=== PATIENT | female | born 1965 | race Caucasian/White ===

== ENCOUNTER 2019-03-22 06:47 | Day surgery (SDC) | payer MEDICAID ==
[2019-03-22] MEDS ORDERED: Propofol 200 MG/20 ML SDV ONE ×2 (07:25→08:47)
[2019-03-22] MEDS ORDERED: Midazolam 1 MG/ML 2 ML SDV ONE (07:25)
[2019-03-22] MEDS ORDERED: fentaNYL 100 MCG/2 ML SDV ONE (07:25)
[2019-03-22] MEDS ORDERED: Lactated Ringers 1,000 ML IV SCH (07:30)
--- NOTE | 2019-03-22 13:17 | OR ---
DATE OF PROCEDURE: 03/22/2019 SURGEON: Skinny Hernandez MD PREOPERATIVE DIAGNOSIS: Colon cancer screening. POSTOPERATIVE DIAGNOSIS: Small polyp 20 cm from the anal verge. PROCEDURE PERFORMED: Colonoscopy to the cecum with biopsy resection of small polyp 20 cm from the anal verge. ANESTHESIA: IV anesthesia with monitored anesthesia care. INDICATIONS: This 53-year-old white female is referred for a colonoscopy. This is her first colonoscopic exam. I counseled her for the procedure, including risks and alternatives, and she gave her informed consent to proceed. DESCRIPTION OF PROCEDURE: The patient was placed in the left lateral decubitus position. IV anesthesia was administered by the Anesthesia Service. Time-out was held. A rectal exam was performed, which was unremarkable. The flexible video Olympus colonoscope was introduced through her anus, up her rectum, and out her colon all the way to the cecum. Once the cecum was reached, the scope was slowly withdrawn examining the mucosa throughout. No mucosal abnormalities were noted until we reached 20 cm from the anal verge. Here, a small polyp was seen which was removed with the biopsy forceps. The scope was brought back in the rectum, where it was retroflexed. The distal rectum appeared unremarkable. The scope was straightened and removed. She tolerated the procedure well. Skinny Hernandez MD /[id number] MTDD
== END 2019-03-22 09:55 | disposition home or self-care (01) ==
LOC: JP.SDS 06:47
PROVIDERS: ATTEND Surgery
DX: Z12.11 Encounter for screening for malignant neoplasm of colon (principal); K63.5 Polyp of colon; K21.9 Gastro-esophageal reflux disease without esophagitis; F17.200 Nicotine dependence, unspecified, uncomplicated; Z91.041 Radiographic dye allergy status; Z88.7 Allergy status to serum and vaccine
CPT/HCPCS: 45380; J2250; J2704; J3010; J7120

== ENCOUNTER 2020-08-29 07:43 | Day surgery (SDC) | payer OTHER ==
[~2020-08-29 07:43] MED LIST: Midazolam 1 MG/ML 2 ML SDV ONE; Propofol 200 MG/20 ML SDV ONE; fentaNYL 100 MCG/2 ML SDV ONE
[2020-08-29] MEDS ORDERED: Dextrose 5%-Lactated Ringers 1,000 ML IV SCH (08:15)
[2020-08-29] MEDS ORDERED: Glycopyrrolate 0.2 MG/ML 2 ML SDV IVPUSH ONE (09:00)
[2020-08-29] MEDS ORDERED: Pantoprazole 40 MG Vial IVPUSH ONE (09:36)
--- NOTE | 2020-09-13 14:25 | OR ---
DATE OF PROCEDURE: 08/29/2020 SURGEON: Yovany Waggoner MD PREOPERATIVE DIAGNOSIS: History of anemia. POSTOPERATIVE DIAGNOSIS: Focal erosive pre-pyloric gastritis with a small amount of old blood present along with fibrinous exudate over the erosions. OPERATIVE PROCEDURE: Esophagogastroduodenoscopy with antral biopsies for CLOtest. ANESTHESIA: IV sedation. INDICATION FOR PROCEDURE: A 55-year-old female presenting with some anemia. The plan is to proceed with upper GI endoscopy with biopsies as indicated. Potential risks including bleeding and perforation were discussed, and the patient wishes to proceed. DETAILS OF PROCEDURE: The patient was taken to the operating room and placed in a left lateral decubitus position. IV sedation was administered, after which the upper GI endoscope was passed orally through the length of the esophagus into the stomach with retroflexion view of the fundus, thereafter through the pyloric channel into the junction of the third and fourth portions of the duodenum. Hypopharynx, larynx, and upper esophageal sphincter were unremarkable. EG junction showed no significant inflammation or hiatal hernia. Within the stomach, there were some focal erosions in the prepyloric area. There was a small amount of old blood present and the erosions were generally covered with some fibrinous exudate. The pyloric channel and visualized portion of the duodenum were unremarkable. At this point, biopsies were obtained from the antrum and sent for CLOtest for H pylori. Minimal bleeding from the biopsy site was seen and the procedure then concluded and the patient was taken to the recovery room in satisfactory condition. The plan will be to give the patient Protonix 40 mg IV in the recovery room and begin Protonix 40 mg daily. She will be set up to see Dr. Mason in followup in roughly 3 weeks with a CBC with that appointment. The patient is presently on aspirin and naproxen and whether or not continue that regimen would be per Dr. Mason. If she is on that, she probably needs to be on neither of H2 alison or proton pump inhibitor concurrently. Yovany Waggoner MD /[id number]
== END 2020-08-29 10:44 | disposition home or self-care (01) ==
LOC: JP.SDS 07:43
PROVIDERS: ATTEND Surgery
DX: K29.60 Other gastritis without bleeding (principal); D64.9 Anemia, unspecified; I10 Essential (primary) hypertension; Z88.8 Allergy status to other drugs, medicaments and biological substances; Z91.030 Bee allergy status; Z91.041 Radiographic dye allergy status
CPT/HCPCS: 43239; 87081; C9113; J2250; J2704; J3010; J3490; J7121

== ENCOUNTER 2020-12-27 05:17 | Day surgery (SDC) | payer OTHER ==
[2020-12-27] MEDS ORDERED: Nozin Nasal Sanitizer NASBOTH SCH (06:00)
[2020-12-27] MEDS ORDERED: Lactated Ringers 1,000 ML IV SCH (06:00)
[2020-12-27] MEDS ORDERED: ceFAZolin 2 GM in Sodium Chloride 0.9% 50 ML IV ONE (06:00)
[2020-12-27] MEDS ORDERED: Povidone-Iodine 10% Soln 118.25 ML Bottle ONE (06:48)
[2020-12-27] MEDS ORDERED: Bupivacaine 0.5% 30 ML SDV ONE (06:49)
[2020-12-27] MEDS ORDERED: ceFAZolin 2 GM in Premix Bag 1 BAG IV ONE (07:00)
[2020-12-27] MEDS: Nozin Nasal Sanitizer NASBOTH SCH ×3 (07:02→20:58)
[2020-12-27] MEDS ORDERED: Propofol 200 MG/20 ML SDV ONE ×3 (07:22→09:04)
[2020-12-27] MEDS ORDERED: fentaNYL 100 MCG/2 ML SDV ONE (07:22)
[2020-12-27] MEDS ORDERED: Midazolam 1 MG/ML 2 ML SDV ONE ×2 (07:22→08:19)
[2020-12-27] MEDS ORDERED: Lactated Ringers 1,000 ML ONE (08:22)
[2020-12-27] MEDS ORDERED: Ondansetron 4 MG/2 ML SDV IVPUSH PRN (09:30)
[2020-12-27] MEDS ORDERED: Acetaminophen 325 MG Tab PO PRN (09:30)
[2020-12-27] MEDS ORDERED: Acetaminophen/HYDROcodone 325-5 MG Tab PO PRN (09:30)
[2020-12-27] MEDS ORDERED: Sodium Chloride 0.9% 1,000 ML IV SCH (09:30)
[2020-12-27] MEDS ORDERED: Morphine 2 MG/ML SYRINGE IVPUSH PRN (09:30)
[2020-12-27] MEDS ORDERED: Non-Formulary Medication 1 Each (Epinephrine [Epipen] 0.3 MG/0.3 ML Pen) IM PRN (09:36)
[2020-12-27] MEDS ORDERED: VARENICLINE TARTRATE PO SCH (09:45)
[2020-12-27] MEDS: Acetaminophen/oxyCODONE 325-5 MG Tab PO PRN ×3 (10:40→20:57)
[2020-12-27] MEDS: Ketorolac 30 MG/ML SDV IVPUSH PRN ×2 (10:41→23:42)
--- NOTE | 2020-12-27 11:08 | CR ---
Knee 1V or 2V Rt CLINICAL HISTORY: Hemiarthroplasty FINDINGS: Patient is status post recent right knee lateral hemiarthroplasty. Components appear well seated. There is intra-articular and subcutaneous air
[2020-12-27] MEDS: ceFAZolin 1 GM in Premix Bag 1 BAG IV SCH ×2 (15:46→23:36)
[2020-12-27] MEDS: Ferrous Sulfate 325 MG Tab PO SCH (17:24)
[2020-12-27] MEDS: Docusate Sodium 100 MG Cap PO SCH (20:58)
[2020-12-28] MEDS: Acetaminophen/oxyCODONE 325-5 MG Tab PO PRN ×2 (04:44→10:53)
[2020-12-28] MEDS ORDERED: Levothyroxine 50 MCG Tab PO SCH (07:30)
[2020-12-28] MEDS ORDERED: Pantoprazole 40 MG Tab.CR PO SCH (07:30)
[2020-12-28] MEDS: Ferrous Sulfate 325 MG Tab PO SCH ×2 (07:33→12:17)
--- NOTE | 2020-12-28 08:55 | PCM.DCSUM1 ---
Discharge Summary - Hospital Course HPI Initial Comments: Pleasant 55-year-old female, history of chronic right lateral knee pain, with symptoms refractory to conservative management. 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 Patient failed conservative management, elected to undergo a partial lateral knee replacement. Tolerated surgery very well with no complications. No acute events in the post-operative hospitalization period. Patient has remained medically stable and demonstrates appropriate functional mobility of RLE on POD#1. Suitable for discharge to home. Diagnosis: Stroke: No Modified [place]don Scale: No Symptoms at All Modified [place] Scale Score: 0 - Discharge Data Discharge Date: 12/28/20 Discharge Disposition: Home, Self-Care 01 Condition: Good - Referral to Home Health Date of Face to Face Encounter: 12/28/20 Reason for Homebound Status: motivated to go home, ambulating independently, demonstrates ADLs with minimal assistance Primary Care Physician: Harinder Mason MD - Discharge Diagnosis/Problem(s) (1) S/P right unicompartmental knee replacement SNOMED Code(s): 085534918, [id number], [id number], [id number] ICD Code: Z96.651 - PRESENCE OF RIGHT ARTIFICIAL KNEE JOINT Status: Acute Current Visit: Yes Problem Details: lateral compartment, partial arthroplasty, DOS: 12/27/20 - Patient Summary/Data Operative Procedure(s) Performed: right knee partial arthroplasty of the lateral compartment Consults: Consultations 12/27/20 09:30 Consult to Case Management/Project Coordinator [CONS] Routine Comment: Physician Instructions: Service(s) to be Consulted: Case Management Reason for Consult: Plan for Discharge Special Instructions: anticipate d/c to home with outpatient PT OT Evaluation and Treatment [CONS] Routine Please Evaluate and Treat. OT Reason for Consult: ADL's Special Instructions: s/p r partial knee arthroplasty, lateral compartment WBAT This query below is only for informational purposes and is not editable. PT Evaluation and Treatment [CONS] Routine Please Evaluate and Treat. PT Reason for Consult: Post op Ortho Surgery Special Instructions: s/p R partial knee arthroplasty, lateral compartment WBAT This query below is only for informational purposes and is not editable. PT Evaluation and Treatment [CONS] Routine Please Evaluate and Treat. PT Reason for Consult: Post op Ortho Surgery Knee Pending Discharge: Yes, 1- 2 days Special Instructions: Schedule first outpatient PT appointment in 3-5 day post discharge. This query below is only for informational purposes and is not editable. Hospital Course: Patient is a pleasant 55 y/o female, status post right knee uniarthroplasty of the lateral compartment, POD#1. Patient tolerated surgery well with no complications. Patient has had no acute events in the postoperative period. Has remained hemodynamically stable. POD#1 HgB declined to 10.9. Patient has been asymptomatic with this; denied dizziness, lightheadedness, vision changes, nor dyspnea. Also denied subjective fevers, chills, chest pain, nor palpitations. Sleep last night was well; denied any disruption from pain in right knee. Reports minimal pain in knee, unless prolonged ambulation or with initial transfer from sit to stand. Denied paresthesias to the RLE. Pain has been well controlled with oral medications. Denied nausea or emesis with pain medication. Has been tolerating regular diet well. Has been compliant with PT and OT services. Ambulation abilities have progressed nicely, walking up to 162 ft with FWW. Also completed 1 stair safely, as she does have 1 stair at home to complete. Able to complete ADLs with minimal assistance. Shaw catheter was discontinued the evening of surgery. IV maintenance fluids discontinued POD#1. Dressing change performed on POD#1. Patient is medically stable and progressing nicely with functional mobility of RLE. Discharging to home this afternoon, will have for support at home. - Patient Instructions Diet: Usual Diet as Tolerated Activity: Apply Ice, Full Weight Bearing Driving: Do Not Drive Showering/Bathing: Shower in AM Wound/Incision Care: Keep Operative Site/Wound Site Clean and Dry, Change Dressing Daily Notify Provider of: Fever, Increased Pain, Swelling and Redness, Drainage - Discharge Plan *PRESCRIPTION DRUG MONITORING PROGRAM REVIEWED*: Yes *COPY OF PRESCRIPTION DRUG MONITORING REPORT IN PATIENT RAJEEV: Not Applicable Prescriptions/Med Rec: Acetaminophen/oxyCODONE [Percocet 325-5 MG] 1 - 2 each PO Q6HR PRN #40 tab PRN Reason: Pain Home Medications: Home Meds Aspirin [Adult Low Dose Aspirin EC] 81 mg PO DAILY 03/19/19 [History] EPINEPHrine [Epipen] 0.3 mg IM ASDIRECTED PRN 03/19/19 [History] Naproxen 500 mg PO BID 03/19/19 [History] atorvaSTATin Calcium [Lipitor] 40 mg PO DAILY 03/19/19 [History] hydroCHLOROthiazide [Hydrochlorothiazide] 25 mg PO DAILY 03/19/19 [History] lisinopriL [Zestril] 20 mg PO DAILY 03/19/19 [History] Cholecalciferol (Vitamin D3) [D3-2000] 125 mcg PO DAILY 03/22/19 [History] Cyanocobalamin (Vitamin B-12) [Vitamin B-12] 1,000 mcg PO DAILY 08/24/20 [History] Ferrous Sulfate 325 mg PO TIDMEALS 08/24/20 [History] Levothyroxine [Synthroid] 50 mcg PO ACBREAKFAST 08/24/20 [History] Pantoprazole Sodium [Protonix] 40 mg PO DAILY 11/01/20 [History] Varenicline Tartrate [Chantix] 1 tab PO ASDIRECTED 12/25/20 [History] Acetaminophen/oxyCODONE [Percocet 325-5 MG] 1 - 2 each PO Q6HR PRN #40 tab 12/28/20 [Rx] Oxygen Therapy Mode: Room Air Patient Handouts: Preventing Problems After Surgery, How to Prevent Constipation After Surgery, Partial Knee Replacement, Care After - Discharge Summary/Plan Comment DC Time >30 min.: No Total # of Minutes for Discharge Time: -Prescription sent for pain control: 5mg-325mg Percocet, 1-2 tabs PO q6 hrs prn for pain. -Encouraged continuation of stool softener while on opioid pain medication. -Educated patient on warning signs of DVT/VTE and SSI; any concerns, she should contact the clinic or visit her local ER. -Educated to take 1 aspirin (81 mg or 325 mg) BID for DVT/VTE prophylaxis -Continue with Nozin spray BID -May shower tomorrow; leave Steristrips on and let water run over the top. They will fall off in 5-7 days. Do not vigorously scrub incision, no submerging incision in bath water. Do not need to place dressing over incision, but may choose to do so if Steristrips are catching on clothing. -Outpatient physical therapy has been arranged. -Follow up with orthopedics in 2 weeks; contact clinic with any concerns or questions that arise prior to scheduled apt. Time spent reviewing above: 10 min - General Info Date of Service: 12/28/20 Admission Dx/Problem (Free Text: knee joint operation Functional Status: Reports: Pain Controlled, Tolerating Diet, Ambulating (with FWW ), Urinating - Review of Systems General: Denies: Fever, Weakness, Malaise, Chills, Night Sweats Pulmonary: Denies: Shortness of Breath Cardiovascular: Denies: Chest Pain, Dyspnea on Exertion Gastrointestinal: Denies: Nausea, Vomiting Musculoskeletal: Reports: Joint Pain (right knee ), Joint Swelling (right knee ) Skin: Reports: Bruising Neurological: Reports: No Symptoms Psychiatric: Reports: No Symptoms - Patient Data Vitals - Most Recent: Last Vital Signs Temp 94.7 F L 12/28/20 07:35 Pulse 71 12/28/20 07:35 Resp 14 12/28/20 07:35 BP 128/70 12/28/20 07:35 Pulse Ox 95 12/28/20 07:35 Weight - Most Recent: 142 lb 12.8 oz I&O - Last 24 hours: Intake & Output 12/27/20 12/28/20 12/28/20 22:59 06:59 14:59 Intake Total 910 2505 480 Output Total 800 1400 Balance 110 1105 480 Lab Results - Last 24 hrs: Laboratory Results - last 24 hr 12/28/20 Range/Units 04:23 WBC 8.3 (4.5-11.0) K/uL RBC 3.49 (3.30-5.50) M/uL Hgb 10.9 L (12.0-15.0) g/dL Hct 33.8 L (36.0-48.0) % MCV 97 (80-98) fL MCH 31 (27-31) pg MCHC 32 (32-36) % Plt Count 306 (150-400) K/uL Med Orders - Current: Current Medications Acetaminophen (Acetaminophen 325 Mg Tab) 650 mg PO Q4H PRN PRN Reason: Pain/Fever Hydrocodone Bitart/Acetaminophen (Acetaminophen/Hydrocodone 325-5 Mg Tab) 1 tab PO Q4H PRN PRN Reason: Pain (mild 1-3) Atorvastatin Calcium (Atorvastatin 20 Mg Tab) 40 mg PO DAILY [facility] Bandage/Support Products (Nozin Nasal Reconditioner) 1 applic NASBOTH BID [facility] Last Admin: 12/27/20 20:58 Dose: 1 applic Documented by: Docusate Sodium (Docusate Sodium 100 Mg Cap) 100 mg PO BID [facility] Last Admin: 12/27/20 20:58 Dose: 100 mg Documented by: Enoxaparin Sodium (Enoxaparin 30 Mg/0.3 Ml Syringe) 30 mg SUBCUT DAILY [facility] Ferrous Sulfate (Ferrous Sulfate 325 Mg Tab) 325 mg PO TIDMEALS [facility] Last Admin: 12/28/20 07:33 Dose: 325 mg Documented by: Hydrochlorothiazide (Hydrochlorothiazide 25 Mg Tab) 25 mg PO DAILY [facility] Sodium Chloride (Normal Saline) 1,000 mls @ 125 mls/hr IV ASDIRECTED [facility] Last Admin: 12/27/20 15:47 Dose: 125 mls/hr Documented by: Ketorolac Tromethamine (Ketorolac 30 Mg/Ml Sdv) 15 mg IVPUSH Q8H PRN PRN Reason: Breakthrough Pain Stop: 01/01/21 09:31 Last Admin: 12/27/20 23:42 Dose: 15 mg Documented by: Levothyroxine Sodium (Levothyroxine 50 Mcg Tab) 50 mcg PO ACBREAKFAST [facility] Last Admin: 12/28/20 07:34 Dose: 50 mcg Documented by: Lisinopril (Lisinopril 20 Mg Tab) 20 mg PO DAILY [facility] Morphine Sulfate (Morphine 2 Mg/Ml Syringe) 1 mg IVPUSH Q1H PRN PRN Reason: Breakthrough Pain Varenicline Tartrate ((Chantix)Pom) 1 tab PO ASDIRECTED [facility] Ondansetron HCl (Ondansetron 4 Mg/2 Ml Sdv) 4 mg IVPUSH Q4H PRN PRN Reason: Nausea/Vomiting Oxycodone/Acetaminophen (Acetaminophen/Oxycodone 325-5 Mg Tab) 1 - 2 tab PO Q4H PRN PRN Reason: Pain Last Admin: 12/28/20 04:44 Dose: 2 tab Documented by: Pantoprazole Sodium (Pantoprazole 40 Mg Tab.Cr) 40 mg PO ACBREAKFAST [facility] Last Admin: 12/28/20 07:34 Dose: 40 mg Documented by: Discontinued Medications Bandage/Support Products (Nozin Nasal Reconditioner) 1 applic NASBOTH BID [facility] Last Admin: 12/27/20 20:52 Dose: Not Given Documented by: Bupivacaine HCl (Bupivacaine 0.5% 30 Ml Sdv) Confirm Administered Dose 30 ml .ROUTE .STK-MED ONE Stop: 12/27/20 06:50 Fentanyl (Fentanyl 100 Mcg/2 Ml Sdv) Confirm Administered Dose 100 mcg .ROUTE .STK-MED ONE Stop: 12/27/20 07:23 Lactated Ringer's (Ringers, Lactated) 1,000 mls @ 75 mls/hr IV ASDIRECTED [facility] Last Admin: 12/27/20 05:59 Dose: 75 mls/hr Documented by: Cefazolin Sodium/Dextrose 2 gm (/ Premix) 50 mls @ 100 mls/hr IV ONETIME ONE Stop: 12/27/20 07:29 Last Admin: 12/27/20 07:46 Dose: 100 mls/hr Documented by: Lactated Ringer's (Ringers, Lactated) Confirm Administered Dose 1,000 mls @ as directed .ROUTE .STK-MED ONE Stop: 12/27/20 08:23 Cefazolin Sodium/Dextrose 1 gm (/ Premix) 50 mls @ 200 mls/hr IV Q8H [facility] Stop: 12/28/20 08:14 Last Admin: 12/27/20 23:36 Dose: 200 mls/hr Documented by: Midazolam HCl (Midazolam 1 Mg/Ml 2 Ml Sdv) Confirm Administered Dose 2 mg .ROUTE .STK-MED ONE Stop: 12/27/20 07:23 Midazolam HCl (Midazolam 1 Mg/Ml 2 Ml Sdv) Confirm Administered Dose 2 mg .ROUTE .STK-MED ONE Stop: 12/27/20 08:20 Povidone Iodine (Povidone-Iodine 10% Soln 118.25 Ml Bottle) Confirm Administered Dose 1 ml .ROUTE .STK-MED ONE Stop: 12/27/20 06:49 Propofol (Propofol 200 Mg/20 Ml Sdv) Confirm Administered Dose 200 mg .ROUTE .STK-MED ONE Stop: 12/27/20 07:23 Propofol (Propofol 200 Mg/20 Ml Sdv) Confirm Administered Dose 200 mg .ROUTE .STK-MED ONE Stop: 12/27/20 08:35 Propofol (Propofol 200 Mg/20 Ml Sdv) Confirm Administered Dose 200 mg .ROUTE .STK-MED ONE Stop: 12/27/20 09:05 - Exam Quality Assessment: Reports: DVT Prophylaxis General: Reports: Alert, Oriented, Cooperative, No Acute Distress Extremities: Normal Capillary Refill, Pedal Edema, Joint Swelling (right knee ), Leg Pain (right ), Limited Range of Motion (from postoperative swelling and pain ). No: Bushra's Sign Skin: Reports: Dry, Intact, Ecchymosis Wound/Incisions: Reports: Healing Well, Dressing Dry and Intact, No Drainage Neurological: Reports: No New Focal Deficit Psy/Mental Status: Reports: Alert, Normal Affect, Normal Mood
[2020-12-28] MEDS ORDERED: Lisinopril 20 MG Tab PO SCH (09:00)
[2020-12-28] MEDS ORDERED: Hydrochlorothiazide 25 MG Tab PO SCH (09:00)
[2020-12-28] MEDS ORDERED: atorvaSTATin 20 MG Tab PO SCH (09:00)
[2020-12-28] MEDS ORDERED: Non-Formulary Medication 1 Each (Atorvastatin Calcium [Lipitor] 40 MG Tablet) PO SCH (09:00)
[2020-12-28] MEDS ORDERED: Enoxaparin 30 MG/0.3 ML Syringe SUBCUT SCH (09:00)
[2020-12-28] MEDS: ceFAZolin 1 GM in Premix Bag 1 BAG IV SCH (09:38)
[2020-12-28] MEDS: Nozin Nasal Sanitizer NASBOTH SCH (10:26)
[2020-12-28] MEDS: Docusate Sodium 100 MG Cap PO SCH (10:26)
--- NOTE | 2021-01-03 20:47 | OR ---
DATE OF PROCEDURE: 12/27/2020 SURGEON: Reginald Narayan MD PREOPERATIVE DIAGNOSIS: Right knee lateral meniscus tear and severe chondromalacia lateral compartment. POSTOPERATIVE DIAGNOSES: Right knee lateral meniscus tear and severe chondromalacia lateral compartment and osteoarthritis. PROCEDURE: Lateral unicompartmental arthroplasty, right knee, using the [employer] ZUK components with a size E femur, 2 tibia, 14 mm polyethylene. MASK INSPECTOR: TETO Hopkins ANESTHESIA: Spinal with sedation. INDICATIONS: Lena is a pleasant 55-year-old female who has had progressive pain in the lateral aspect of her right knee. X-rays showed mild degenerative change. However, the MRI revealed lateral meniscus tear as well as significant articular cartilage defects, particularly over the femoral condyle. Medial and patellofemoral compartments were relatively well preserved. After discussion of options, she presents for a right lateral unicompartmental arthroplasty. Risks, benefits, potential complications were discussed. PROCEDURE IN DETAIL: After adequate anesthesia was obtained, the patient was placed in a supine position with a tourniquet about the right upper thigh. Right leg was prepped and draped in a sterile fashion. The leg was exsanguinated and tourniquet inflated to 300 mmHg pressure. A longitudinal incision was made just lateral of midline from the superior pole of the patella to the tibial tubercle. This was carried down through the subcutaneous tissues, and a lateral parapatellar arthrotomy was performed. A portion of the fat pad was excised along with the anterior horn of the lateral meniscus. The knee was flexed and evaluation of the articular cartilage of the femur revealed areas of full-thickness cartilage loss. The patellofemoral joint revealed no significant articular cartilage defects. The decision was made to proceed with the unicompartmental arthroplasty. The anterior lip of the tibial plateau was resected with an oscillating saw. The knee was extended and the extramedullary alignment jig was placed. This is aligned and secured to the femur and tibia. Distal femoral resection was made with an oscillating saw. This portion of the guide was removed. The knee was then flexed, and the tibial plateau was resected with a combination of oscillating and reciprocating saws. Remaining meniscus was excised. The femur was sized to an E component. The cutting jig was secured to the distal femur. Remaining cuts and the PEG holes were then made. The guide was removed. The tibia was sized to a #2 component. A trial base plate was pinned in position, PEG holes were drilled, and a trial polyethylene insert was placed with a 12-14 mm implant providing best balance. The trials were removed. The knee was thoroughly irrigated. The bone surfaces were dried. The components were cemented in place and excess cement was removed. A 12 mm spacer was placed along with a 2 mm gap. The knee was held in full extension as the cement cured. The knee was again taken through range of motion. Flexion extension gaps were evaluated. The 12 spacer was removed. A 14 mm was placed and gaps were once again checked with 2 mm of play in both flexion and extension. The trial was removed. The knee was irrigated and the final polyethylene was snapped into position. The knee was then irrigated with a dilute Betadine solution followed by pulse lavage. The capsule was closed with #2 Ethibond in a running fashion, taking care not to over tighten repair and lateralize the patella. The skin was closed with 2-0 Vicryl and a running 3-0 Monocryl. Steri-Strips were applied. Sterile dressing was placed with a light compressive dressing. The patient tolerated the procedure well. There were no complications. Taken from the operating room in stable condition. Reginald Narayan MD /[id number]
== END 2020-12-28 13:45 | disposition home or self-care (01) ==
LOC: JP.SDS 05:17 → JP.MS 09:30 → JP.SDS 12-28 13:45
PROVIDERS: ATTEND Specialist
DX: M17.11 Unilateral primary osteoarthritis, right knee (principal); M94.261 Chondromalacia, right knee; M75.101 Unspecified rotator cuff tear or rupture of right shoulder, not specified as traumatic; K21.9 Gastro-esophageal reflux disease without esophagitis; E03.9 Hypothyroidism, unspecified; I10 Essential (primary) hypertension; F32.9 Major depressive disorder, single episode, unspecified; Z98.890 Other specified postprocedural states; Z79.82 Long term (current) use of aspirin; Z79.890 Hormone replacement therapy; Z79.899 Other long term (current) drug therapy; Z91.030 Bee allergy status; Z87.891 Personal history of nicotine dependence
CPT/HCPCS: 27446; 36415; 73560; 85027; 97110; 97116; 97161; 97165; 97530; 97535; A9270; C1713; C1776; J0690; J1650; J1885; J2250; J2704; J3010; J7030; J7120; J3490

== ENCOUNTER 2022-09-21 19:29 | Emergency (ER) | payer BC, OTHER ==
[2022-09-21] MEDS ORDERED: Sodium Chloride 0.9% 10 ML Syringe FLUSH PRN (19:32)
[2022-09-21 19:45] LABS: HEMATOCRIT 24.4 % (34.3-46.0); HEMOGLOBIN 7.2 g/dL (11.2-15.5); MEAN CORPUSCULAR HEMOGLOBIN 21.1 pg (31.6-35.5); MEAN CORPUSCULAR HGB CONC 29.5 g/dL (31.6-35.5); MEAN CORPUSCULAR VOLUME 71.3 fL (81.4-99.0); RED BLOOD CELL COUNT 3.42 M/uL (3.77-5.24); WHITE BLOOD CELL COUNT,WBC 11.5 K/uL (3.2-11.0)
[2022-09-21 20:01] LABS: APPEARANCE,URINE CLEAR (CLEAR); BILIRUBIN,URINE NEGATIVE (NEGATIVE); COLOR,URINE YELLOW (YELLOW); GLUCOSE,URINE NEGATIVE (NEGATIVE); KETONES,URINE NEGATIVE (NEGATIVE); LEUKOCYTE ESTERASE,URINE TRACE (NEGATIVE); NITRITE,URINE NEGATIVE (NEGATIVE); OCCULT BLOOD,URINE NEGATIVE (NEGATIVE); PH,URINE 5.5 (5.0-8.0); PROTEIN,URINE NEGATIVE (NEGATIVE); UROBILINOGEN,URINE 0.2 EU/dL (0.2-1.0)
[2022-09-21 20:06] LABS: AMORPHOUS SEDIMENT,URINE NOT SEEN; BACTERIA,URINE RARE; EPITHELIAL CELLS,URINE RARE; MUCUS,URINE NOT SEEN; RBC,URINE 0-5 (0-5); WBC,URINE 0-5 (0-5)
[2022-09-21 20:19] LABS: A/G RATIO 1.1 (1.2-2.2); ALANINE AMINOTRANSFERASE,ALT 43 U/L (12-78); ALBUMIN 3.8 g/dL (3.4-5.0); ALKALINE PHOSPHATASE 68 U/L (46-116); ASPARTATE AMNIOTRANSFERASE,AST 29 U/L (15-37); BILIRUBIN TOTAL 0.2 mg/dL (0.2-1.0); BLOOD UREA NITROGEN,BUN 19 mg/dL (7-18); C-REACTIVE PROTEIN 0.29 mg/dL (0.0-0.3); CARBON DIOXIDE,CO2 25 mmol/L (21-32); CHLORIDE,CL 100 mmol/L (100-108); CREATINE KINASE,CK 123 U/L (26-192); CREATININE 0.9 mg/dL (0.6-1.0); EST CRCL DRUG DOSING (CG) 62.06 mL/min; ESTIMATED GFR 75 mL/min (>60); GLUCOSE RANDOM 132 mg/dL (74-106); POTASSIUM,K 3.4 mmol/L (3.6-5.2); PROTEIN TOTAL,TP 7.4 g/dL (6.4-8.2); SODIUM,NA 138 mmol/L (140-148); T4 FREE 0.81 ng/dL (0.76-1.46); TROPONIN I HIGH SENSITIVITY 9.6 pg/mL (<=60.3); TSH ULTRASENSITIVE 2.028 uIU/mL (0.358-3.740)
[2022-09-21 20:22] LABS: ANION GAP 16.4 mmol/L (5.0-14.0)
[2022-09-21 20:35] LABS: IRON,FE 11 ug/dL (50-170); PERCENT FE SATURATION 2 % (20-55); TOTAL IRON BINDING CAPACITY 537 ug/dl (250-450)
[2022-09-21] MEDS ORDERED: Magnesium Oxide 400 MG Tab PO ONE (21:43)
== END 2022-09-22 02:18 | disposition home or self-care (01) ==
LOC: JP.ED 19:29
DX: E83.42 Hypomagnesemia (principal); R55 Syncope and collapse; D50.9 Iron deficiency anemia, unspecified; F17.210 Nicotine dependence, cigarettes, uncomplicated; I10 Essential (primary) hypertension; E78.00 Pure hypercholesterolemia, unspecified; E03.9 Hypothyroidism, unspecified; I25.10 Atherosclerotic heart disease of native coronary artery without angina pectoris; Z95.5 Presence of coronary angioplasty implant and graft; Z20.822 Contact with and (suspected) exposure to COVID-19; Z79.82 Long term (current) use of aspirin; Z79.899 Other long term (current) drug therapy; Z91.030 Bee allergy status; Z91.048 Other nonmedicinal substance allergy status; Z91.041 Radiographic dye allergy status; Z88.7 Allergy status to serum and vaccine
CPT/HCPCS: 36415; 36430; 80053; 80307; 81001; 82550; 82728; 83550; 83605; 83735; 84439; 84443; 84484; 85018; 85027; 86140; 86850; 86900; 86901; 86920; 86922; 87635; 93005; 99284; A9270; J3490; P9016; U0002

== ENCOUNTER 2022-10-04 05:45 | Day surgery (SDC) | payer BC ==
[2022-10-04] MEDS ORDERED: Dextrose 5%-Lactated Ringers 1,000 ML IV SCH (06:00)
[2022-10-04 06:14] LABS: HEMATOCRIT 32.3 % (34.3-46.0); MEAN CORPUSCULAR HEMOGLOBIN 24.2 pg (31.6-35.5); RED BLOOD CELL COUNT 4.14 M/uL (3.77-5.24); WHITE BLOOD CELL COUNT,WBC 11.7 K/uL (3.2-11.0)
[2022-10-04] MEDS ORDERED: Midazolam 1 MG/ML 2 ML SDV ONE (06:53)
[2022-10-04] MEDS ORDERED: Propofol 200 MG/20 ML SDV ONE (06:53)
[2022-10-04] MEDS ORDERED: fentaNYL 100 MCG/2 ML SDV ONE (06:53)
[2022-10-04 07:03] LABS: FOLIC ACID 13.8 ng/ml (8.6-58.9)
[2022-10-04] MEDS ORDERED: Famotidine 20 MG/2 ML SDV IVPUSH PRN (10:00)
[2022-10-04] MEDS ORDERED: diphenhydrAMINE 50 MG/ML SDV IVPUSH PRN (10:00)
[2022-10-04] MEDS ORDERED: Hydrocortisone Sodium Succinate 100 MG/2 ML SDV IVPUSH PRN (10:00)
[2022-10-04] MEDS ORDERED: ferumoxytoL 510 MG in Sodium Chloride 0.9% 100 ML IV ONE (10:00)
== END 2022-10-04 11:10 | disposition home or self-care (01) ==
LOC: JP.SDS 05:45
PROVIDERS: ATTEND Surgery
DX: D50.9 Iron deficiency anemia, unspecified (principal); K29.50 Unspecified chronic gastritis without bleeding; K31.7 Polyp of stomach and duodenum; K25.9 Gastric ulcer, unspecified as acute or chronic, without hemorrhage or perforation; I10 Essential (primary) hypertension; K21.9 Gastro-esophageal reflux disease without esophagitis; Z79.899 Other long term (current) drug therapy; Z91.041 Radiographic dye allergy status; Z88.7 Allergy status to serum and vaccine
CPT/HCPCS: 36415; 43239; 43251; 82607; 82728; 82746; 85027; J2250; J2704; J3010; J3490; J7121; Q0138